=== PATIENT | male | born 1985 | race Caucasian/White ===

== ENCOUNTER 2018-08-30 10:15 | Emergency (ER) | payer BC, MEDICAID ==
[~2018-08-30] VITALS: Ht 175.3 cm; Wt 97.5 kg
[~2018-08-30 10:15] MED LIST: HYDR1TAB8 OP
[2018-08-30] MEDS ORDERED: TETANUS,DIPTH,PERTUSS P/F (BOOSTRIX) 0.5 ML VIAL IM ONE ×2 (10:45→11:00)
[2018-08-30] MEDS ORDERED: LIDOCAINE/EPI 2% 1:100,00 (XYLOCAINE) 20 ML VIAL INJ ONE (11:00)
--- NOTE | 2018-08-30 11:11 | ED Upper Extremity ---
General Chief Complaint: Laceration Stated Complaint: LEFT ARM LAC Nursing Triage Note: Pt cut L forearm with press box custodian when opening a box. Bleeding controlled, fatty tissue exposed. Nursing Sepsis Screen: No Definite Risk Source: patient Exam Limitations: no limitations History of Present Illness Date Seen by Provider: Aug 30, 2018 Time Seen by Provider: 11:06 Initial Comments To ER with reports a laceration to the left forearm with a box knife at home while packing a box in preparation for moving from [place] back to [place]. Tetanus is not up-to-date. This occurred just prior to arrival Onset: just prior to arrival Severity: moderate Pain/Injury Location: left forearm Method of Injury: incised Allergies and Home Medications Allergies Coded Allergies: No Known Drug Allergies (Unverified , 08/07/11) Home Medications Hydrocodone Bit/Ibuprofen 1 Each Tablet, 1-2 EACH OP Q 4 - 6 HRS PRN FOR PAIN Prescribed by: SUKI CARROLL on 08/07/11 193 Patient Home Medication List Home Medication List Reviewed: Yes Review of Systems Constitutional: see HPI EENTM: see HPI Respiratory: no symptoms reported Cardiovascular: no symptoms reported Genitourinary: no symptoms reported Musculoskeletal: no symptoms reported Skin: see HPI Psychiatric/Neurological: No Symptoms Reported Past [id number] Hx Patient Social History Alcohol Use: Denies Use Recreational Drug Use: No 2nd Hand Smoke Exposure: No Recent Foreign Travel: No Contact w/Someone Who Travel: No Recent Infectious Disease Expo: No Recent Hopitalizations: No Seasonal Allergies Seasonal Allergies: No Past Medical History Surgeries: Yes (L wrist and L hip) Orthopedic Respiratory: No Cardiac: No Neurological: No Genitourinary: No Gastrointestinal: No Musculoskeletal: No Endocrine: No HEENT: No Cancer: No Psychosocial: No Blood Disorders: No Physical Exam Vital Signs Vital Signs - First Documented 08/30/18 10:25 Temp 98.2 Pulse 115 Resp 15 B/P (MAP) 116/84 (95) Pulse Ox 96 O2 Delivery Room Air Capillary Refill : Less Than 3 Seconds Height, Weight, BMI Height: 5'9.00" Weight: 215lbs. oz. 97.071354tv; BMI Method:Stated General Appearance: WD/WN, no apparent distress HEENT: PERRL/EOMI, normal ENT inspection Respiratory: no respiratory distress, no accessory muscle use Shoulder: normal inspection, non-tender Elbow/Forearm: non-tender, Left, soft tissue tenderness (there is a 3 cm lacer ation to the volar ulnar side of the left forearm with depth down to the adipose tissue. The patient maintains ability to flex the wrist and each of his fingers individually.) Neurologic/Psychiatric: alert, normal mood/affect, oriented x 3 Skin: normal color, warm/dry Procedures/Interventions Wound Location: Upper Extremities Wound Length (cm): 3 Wound's Depth, Shape: linear, sub Q Wound Explored: clean Irrigated w/ Saline (ccs): 50 Anesthesia: Lidocaine w/ Epi Volume Anesthetic (ccs): 2 Suture: Prolene Suture Size: 4-0 Number of Sutures: 7 Layer Closure?: 1 Number Deep Layer Sutures: 0 Progress Anesthetized with lidocaine with epinephrine totaling 2-3 cc. Scrubbed with chlorhexidine/saline solution then closed with 7 simple interrupted sutures size 4-0 Prolene. Progress/Results/Core Measures Results/Orders My Orders Orders - SUSAN WHITLEY APRN Lidocaine/Epi 2% 1:100,000 (Xylocaine/Ep (08/30/18 11:00) Dipht,Pertuss(Acell),Tet Adult (Boostrix (08/30/18 11:00) Dipht,Pertuss(Acell),Tet Adult (Boostrix (08/30/18 10:45) Medications Given in ED Current Medications Medications Dose Ordered Sig/Yamil Route Start Time Stop Time Status Last Admin Dose Admin Diphtheria/ Tetanus/Acell Pertussis 0.5 ml ONCE ONCE IM 08/30/18 11:00 08/30/18 11:01 DC 08/30/18 10:52 0.5 ML Lidocaine/ Epinephrine 1 ml ONCE ONCE INJ 08/30/18 11:00 08/30/18 11:01 DC 08/30/18 10:50 1 ML Vital Signs/I&O 08/30/18 10:25 Temp 98.2 Pulse 115 Resp 15 B/P (MAP) 116/84 (95) Pulse Ox 96 O2 Delivery Room Air Blood Pressure Mean: 95 Departure Impression Primary Impression: Arm laceration Qualified Codes: S41.112A - Laceration without foreign body of left upper arm, initial encounter Disposition: 01 HOME, SELF-CARE Condition: Stable Departure-Patient Inst. Decision time for Depature: 11:08 Referrals: JOSÉ LUIS MIJARES MD (PCP) Primary Care Physician Patient Instructions: Diphtheria and Tetanus Toxoids, and Acellular Pertussis Vaccine, Laceration Repair With Stitches (DC) Add. Discharge Instructions: 1. Your arm may be achy today and tomorrow. You may notice a brief period of feeling ill which is body aches chills and fatigue which is your body's immune system making antibodies to the tetanus vaccine that we gave you today. Take some Tylenol and this will pass in about a day. Keep the laceration covered for about 2-3 days until he quits using the new can leave it open to air. You can shower starting tomorrow letting water run over it but do not soak it in water such as a hot tub bath tub or swimming pool until the stitches have been removed. All discharge instructions reviewed with patient and/or family. Voiced understanding. SUSAN WHITLEY APRN Aug 30, 2018 11:10
[2018-08-30 11:25] VITALS: BP 123/82
== END 2018-08-30 11:15 | disposition home or self-care (01) ==
LOC: EDUNIT# 10:15 → ER 10:17
DX: S51.812A Laceration without foreign body of left forearm, initial encounter (principal); W26.0XXA Contact with knife, initial encounter; Y92.009 Unspecified place in unspecified non-institutional (private) residence as the place of occurrence of the external cause
CPT/HCPCS: 12002; 90471; 90715